=== PATIENT | male | born 1965 | race Caucasian/White ===

== ENCOUNTER 2017-08-25 14:29 | Day surgery (SDC) | payer OTHER ==
[~2017-08-25 14:29] MED LIST: ASPI81CH PO; CIPR250 PO; HYDACE5 PO; Lopressor 25 mg25 MG PO; METO50 PO
== END 2017-08-25 22:40 | disposition home or self-care (01) ==
LOC: RAD 14:29 → MRI 16:00 → RAD 22:40
PROC: BP3MYZZ Magnetic Resonance Imaging (MRI) of Left Wrist using Other Contrast (ICD-10-PCS; principal; 2017-08-25)
DX: S63.512A Sprain of carpal joint of left wrist, initial encounter (principal); M67.834 Other specified disorders of tendon, left wrist
CPT/HCPCS: 25246; 73222; 77002; A9577; Q9967

== ENCOUNTER → 2025-03-24 | Outpatient (CLI) | payer SELFPAY | LOC: LAB 08:08 → LAB SHORT 08:08 | DX: L57.0 Actinic keratosis (principal); D22.9 Melanocytic nevi, unspecified | CPT/HCPCS: 88304 ==